=== PATIENT | male | born 1950 | race Hispanic/Latino ===

== ENCOUNTER 2025-01-05 12:25 | Emergency (ER) | payer OTHER ==
[~2025-01-05] VITALS: Ht 172.7 cm; Wt 76.2 kg
[~2025-01-05 12:25] MED LIST: ASPI-1197 PO
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
[2025-01-05] MEDS: SILVER SULFADIAZINE CREAM 50 GM TP ONE (13:26)
[2025-01-05] MEDS: teTANUS/diphthERIA TOXOID [ADULT] 0.5 ML VIAL IM ONE (13:28)
[2025-01-05 14:39] VITALS: BP 138/74; PULSE 74; RESP 18; TEMP 98.8; O2SAT 96
== END 2025-01-05 14:44 | disposition home or self-care (01) ==
LOC: EDH 12:25
DX: T23.002A Burn of unspecified degree of left hand, unspecified site, initial encounter (principal); T31.0 Burns involving less than 10% of body surface; I10 Essential (primary) hypertension; Z79.82 Long term (current) use of aspirin; Z95.5 Presence of coronary angioplasty implant and graft; X11.8XXA Contact with other hot tap-water, initial encounter; Y93.89 Activity, other specified; Y92.89 Other specified places as the place of occurrence of the external cause; Y99.8 Other external cause status
CPT/HCPCS: 90471; 90714; 99283